=== PATIENT | male | born 1970 | race Caucasian/White ===

== ENCOUNTER → 2017-11-27 | Day surgery (SDC) | payer BC, OTHER ==
[~2017-11-27] MED LIST: ASPIR 8181 MG PO; FLORINEF ACETA0.1 MG PO; LAMICTAL 25 MG25 M1 PO; MIDODRINE HCL 55 M1 PO; MOBIC15 MG PO; OMEPRAZOLE 20 M20 M1 PO; POTASSIUM PO
[2017-11-27 08:20] LABS: CALCIUM 8.7 mg/dL (8.5-10.1); CREATININE 0.9 mg/dL (0.6-1.3); POTASSIUM 3.4 mmol/L (3.5-5.1)
--- NOTE | 2017-11-27 16:45 | EKG ---
[place] [address] ELECTROCARDIOGRAM REPORT Name: SUNSHINE GONGORA Room: [facility]#: [id number] Admission: 11/27/17 Attend Phys: Wali Yang, Discharge: Date of : 68 Report #: [id number] THIS REPORT FOR: //name// [facility] Test Date: 2017-11-27 Test Time: 07:54:44 Pat Name: SUNSHINE GONGORA Department: Room: Gender: Jinriksha Driver: : 1970 Requested By: Wali Yang Order Number: [id number] Sadiq MD: Shubham Cerda Measurements Intervals [place] Rate: 77 P: 61 RI: 143 QRS: 45 QRSD: 96 T: -8 QT: 399 QTc: 452 Interpretive Statements Sinus rhythm Borderline T abnormalities, inferior leads No previous ECG available for comparison Electronically Signed On 11-27-2017 16:45:48 CDT by Shubham Cerda [email or web address] <ELECTRONICALLY SIGNED> By: Shubham Cerda MD, [facility] 11/27/17 1645 [id number] Shubham Cerda MD, FACC /EPI
--- NOTE | 2017-12-04 11:15 | OP ---
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 PROCEDURES: 1. Right ankle arthroscopy with limited synovectomy and debridement. 2. Right ankle open lateral ligament reconstruction using allograft and the Arthrex lateral ligament reconstruction kit. SURGEON: Wali Yang DO SKIVER SOCK LININGS: Jose Montoya DO ANESTHESIA: General. ESTIMATED BLOOD LOSS: Minimal, less than 5 mL. TOURNIQUET TIME: 83 minutes at 300 mmHg to right lower extremity. ANTIBIOTICS: 2 g Ancef IV preoperatively. DRAINS: None. SPECIMENS: None. DISPOSITION: Stable to PACU and will be discharged home from PACU. INDICATIONS FOR SURGICAL PROCEDURE: The patient is a pleasant 47-year-old male who was seen in orthopedic clinic with chronic complaints of right ankle pain and feelings of instability. MR arthrogram displayed lateral ligament attenuation and exam was consistent with lateral ligament insufficiency with increased inversion, stressing and laxity with anterior drawer testing. The patient wished for operative treatment as his pain was refractory to conservative measures. Risks, benefits, complications, indications, [place] [address] OPERATIVE REPORT Name: SUNSHINE GONGORA Room: [facility]#: [id number] Admission: 11/27/17 Attend Phys: Wali Yang, Discharge: Date of : 68 Report #: [id number] treatments were discussed and the patient wished to proceed with surgery today. DESCRIPTION OF PROCEDURE: The patient was seen in preoperative holding area, correct operative site, the right ankle was initialed. The patient was taken back to operating suite, placed in supine position on the operating table, given benefit of general anesthetic. A well-padded tourniquet was placed to the right upper thigh. Right lower extremity was then prepped and draped in typical fashion. Surgery began with a timeout, identifying correct patient, correct procedure, correct operative site, preoperative antibiotics and correct performing surgeon. Next, a standard anterior medial portal site for right ankle arthroscopy was established first starting with injection and insufflation of the joint utilizing an 18 gauge needle. Approximately 10 mL of normal saline just medial to the anterior tibialis tendon, injected directly into the joint, insufflated appropriately and confirmed we are in the joint. Skin was incised with a 15 blade scalpel in a vertical fashion, 0.5 cm in length. Hemostat was entered into the joint bluntly followed by arthroscopic 2.8 mm camera. Thorough ankle arthroscopy was performed. Articular cartilage appeared rather unremarkable with no OCD lesion and no significant degenerative changes noted. There was significant fibrous tissue and some inflamed synovial tissue over the anterolateral aspect of the ankle, which we felt needed debrided and likely was a sign of his lateral ankle ligament insufficiency. The anterior talofibular ligament was visualized and felt to be rather lax in nature arthroscopically. Next, anterior and lateral portal was established under direct visualization using spinal needle technique. A 3.0 mm shaver was introduced through an anterolateral portal and was used to provide significant debridement of the surrounding synovium and fibrous scar type tissue. Next, arthroscopic fluid was exsanguinated. Arthroscopic tools were removed. We turned our attention to the open part of the procedure. Next, a curvilinear incision was made roughly 5-6 cm in length starting over the posterolateral aspect of the distal fibula extending down anteriorly in line with roughly the peroneal tendons. Subcutaneous tissues were sharply dissected down to the level of the lateral ankle capsule. Inferior peroneal retinaculum was released. Superior peroneal retinaculum was preserved throughout the case. The peroneal tendons were visualized and protected throughout the case. Next, anterior and distal capsulotomy was performed of the lateral ankle. ATFL and calcaneofibular ligament remnants were visualized and located. Both are origin insertions on the fibula and talus and fibula and calcaneus respectively. Next, standard drill holes were performed into the neck of the talus and into the body of the calcaneus in a normal fashion directly over the insertion of the CFL and ATFL ligaments respectively as well as subperiosteal sleeve was developed on the distal fibula and bone tunnels were drilled at the origins of both the CFL and ATFL and these were connected intraosseously through the distal fibula in the normal fashion according to the Arthrex lateral ligament reconstruction technique. Next, our presuture graft was inserted in [place] [address] OPERATIVE REPORT Name: SUNSHINE GONGORA Room: [facility]#: [id number] Admission: 11/27/17 Attend Phys: Wali Yang, Discharge: Date of : 68 Report #: [id number] 5.5 mm tenodesis screw into the talus and was secured appropriately in normal fashion. It was passed through our fibular tunnels in the normal fashion and was tensioned appropriately while the ankle was held in an eversion type stress and a 4.75 mm tenodesis screw was inserted into the anterior aspect of the fibula at the origin of the ATFL. Next, our calcaneus was drilled in a normal fashion and graft was measured to the appropriate length to provide appropriate attention for reconstruction of her CFL part of the ligament. It was whipstitched in a normal fashion and was then inserted with a 6.25 tenodesis screw into the anatomic insertion of the CFL ligament in a normal fashion, had great bite with all of our tenodesis screws. Ankle was stressed at the end of exam, had great stability with both inversion and anterior drawer testing. Completed the reconstruction of our ATFL and CFL ligaments. Capsule was imbricated in a normal fashion using 2-0. <ELECTRONICALLY SIGNED> By: Wali Yang DO 12/04/17 1115 [id number] Yang DO /nt
--- NOTE | 2017-12-04 11:15 | OP ---
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 PROCEDURES: 1. Right ankle arthroscopy with limited synovectomy and debridement. 2. Right ankle open lateral ligament reconstruction using allograft and the Arthrex ankle lateral ligament reconstruction kit. SURGEON: Wali Yang DO DRAFTER GEOLOGICAL: Jose Montoya DO ANESTHESIA: General. ANTIBIOTICS: 2 grams Ancef IV preoperatively. ESTIMATED BLOOD LOSS: Minimal, less than 5 mL. TOURNIQUET TIME: 83 minutes at 300 mmHg to right lower extremity. DRAINS: None. SPECIMENS: None. DISPOSITION: Stable to PACU and will be discharged to home from PACU. INDICATIONS FOR PROCEDURE: The patient is a pleasant 47-year-old male who was seen multiple times in Orthopedic Clinic with complaints of right ankle pain and feelings of instability with multiple inversion type injuries throughout his lifetime, worsened within the last year or so with multiple ankle sprains. An MR arthrogram was obtained, displayed some attenuation of the lateral ligaments of the right ankle and on exam, he had significant laxity with inversion type stressing and with anterior drawer maneuver of his right ankle. He did not have [address] [address] OPERATIVE REPORT Name: SUNSHINE GONGORA Room: [facility]#: [id number] Admission: 11/27/17 Attend Phys: Wali Yang, Discharge: Date of : 68 Report #: [id number] any significant chondral defects noted on the MRI. The pain and feelings of instability were refractory to conservative measures; therefore, recommended operative treatment consisting of a right ankle arthroscopy with open lateral ligament reconstruction using allograft. Risks, benefits, complications and indications, alternative treatments were discussed and include but not limited to infection, neurovascular injury, need for further surgery, continued instability and pain. The patient wished to proceed with surgery today. DESCRIPTION OF PROCEDURE: The patient was seen in preoperative holding area; correct operative site, right ankle was initialed. The patient was taken back to the operating suite, placed in supine position on the operating table, given benefit of general anesthetic. A well-padded tourniquet was placed to the right upper thigh and right lower extremity was then prepped and draped in typical fashion. Surgery began with a timeout, identifying correct patient, correct procedure, correct operative site, preoperative antibiotics and correct performing surgeon. Next, a standard ankle arthroscopy was performed. We started with our anterior medial portal, positioned just medial to the anterior tibialis tendon. The joint was insufflated with roughly 10 mL of normal saline fluid, was injected through the anterior medial portal site, directly into the joint, utilizing an 18-gauge needle and confirmed that we were in the appropriate location. Next, skin was incised with a 15 blade scalpel, roughly 1 cm vertical incision and subcutaneous tissues were dissected and the joint was entered with a hemostat. Camera trocar was then inserted, followed by the arthroscopic camera, 2.8 mm camera. A thorough ankle arthroscopy was performed. Articular cartilage surfaces appeared rather unremarkable with minimal degenerative changes and no osteochondral lesion noted. There was a significant thickened tissue over the anterolateral aspect of the ankle as well as some mild synovitis type appearing tissue. Our anterolateral portal was established under direct visualization using spinal needle technique, lateral to the superficial peroneal nerve in the normal fashion. Skin was incised with a 15 blade scalpel, roughly 0.5 cm incision. Blunt trocar was introduced, followed by a 3.0 mm arthroscopic shaver, which was used to debride the surrounding synovium and fibrous tissue on the anterior and lateral aspect of the ankle. The fibula was visualized and the anterior talofibular ligament was visualized at this time. It seemed to have significant laxity on arthroscopic visualization. We were able to stress the ankle and get significant gapping laterally without significant stress, consistent with his chronic instability and lateral ligament insufficiency. After thorough debridement was performed with the arthroscopic shaver, arthroscopic fluid was exsanguinated from the joint. All arthroscopic tools were removed. We then turned to the open part of the procedure. An incision was made directly over the posterior aspect of the distal fibula and curving anteriorly just distal to the tip of the fibula, roughly in line with the peroneal tendons. Incision was made roughly 5-6 cm in length. Skin was incised down to subcutaneous tissue, was sharply incised [place] [address] OPERATIVE REPORT Name: SUNSHINE GONGORA Room: [facility]#: [id number] Admission: 11/27/17 Attend Phys: Wali Yang, Discharge: Date of : 68 Report #: [id number] tendons were exposed and released from the inferior peroneal retinaculum. Superior peroneal retinaculum was preserved throughout the case. Capsule of the lateral aspect of the ankle was then incised around the anterior and distal aspect of the fibula in the normal fashion, leaving normal amount of cuff tissue to do a modified Brostrom repair at the end. Anterior talofibular ligament and remnants of the calcaneofibular ligament were evident at this point. Dissection was taken down on to the calcaneus. The wound was thoroughly irrigated. Subcutaneous tissues were then closed in a simple inverted fashion with 2-0 Vicryl sutures. Skin was closed with a running 3-0 subcuticular Stratafix suture, followed by Dermabond on the skin. Portal incisions were closed in a simple interrupted fashion with 3-0 nylon suture. The patient was placed in a 5-inch OCL short leg posterior splint with significant padding, consisting of 4 x 4s and multiple rolls of soft roll as well as two 6-inch compressive Allan wrap bandages over top of the OCL. The patient was weaned from his general anesthetic, transferred in stable condition to the PACU. All sponge and needle counts were correct x 2. He should be nonweightbearing on his right lower extremity and maintain splint/dressing clean, dry and intact until followup in 2 weeks in Orthopedic Clinic. <ELECTRONICALLY SIGNED> By: Wali Ynag DO 12/04/17 1115 [id number] Centertala Yang DO /eligio
== END | disposition home or self-care (01) ==
LOC: M.SUR 07:34
PROVIDERS: Orthopaedic Surgery
DX: S93.491A Sprain of other ligament of right ankle, initial encounter (principal); M65.871 Other synovitis and tenosynovitis, right ankle and foot; M25.371 Other instability, right ankle; Z79.82 Long term (current) use of aspirin; Z79.899 Other long term (current) drug therapy; X58.XXXA Exposure to other specified factors, initial encounter; Y93.89 Activity, other specified; Y92.89 Other specified places as the place of occurrence of the external cause; Y99.8 Other external cause status